=== PATIENT | male | born 1985 | race Caucasian/White ===

== ENCOUNTER 2016-09-07 05:59 | Day surgery (SDC) | payer OTHER ==
--- NOTE | 2016-09-04 23:04 | HP ---
ADMITTING HISTORY AND PHYSICAL: DATE OF ADMISSION: 09/07/16 AGE: 30 years, male. ADMITTING DIAGNOSES: 1. Hematuria. 2. Large bladder calculus. PLANNED PROCEDURES: Cystoscopy, fragmentation and removal of bladder calculus, possible laser. SURGEON: Dr. Vargas. HISTORY OF PRESENT ILLNESS: Josh Mclean is a 30-year-old gentleman who for the last several months has had difficulty urinating and increased frequency. He was evaluated and noted to have a fairly large 4 to 5 cm sharp edged calculus in the bladder. The calculus when I did a cystoscopy was located at the bladder neck and I suspect has been intermittently blocking the bladder neck and causing his urinary symptoms. He does have a history of frequent childhood urinary tract infections and it is possible that this problem has been going on for a long time. PAST MEDICAL HISTORY: Significant for an esophageal stricture diagnosed in 2012. PAST SURGICAL HISTORY: Significant for what seems to have been esophageal stent insertion in 2012, although details are not available at this time. MEDICATIONS: On admission Percocet p.r.n. ALLERGIES: No known drug allergies. PHYSICAL EXAMINATION GENERAL: A pleasant, uncomfortable-appearing young gentleman. VITAL SIGNS: Blood pressure is 116/72, pulse 76 per minute and regular, oxygen saturation 99% on room air, temperature 97.7. LUNGS: Clear bilaterally. CARDIOVASCULAR EXAM: Regular rate and rhythm. S1, S2. ABDOMEN: Soft without masses. IMPRESSION: A 30-year-old with a fairly large calculus in the bladder, which is causing obstructive and irritative voiding symptoms. Because of the large size of the calculus, I have explained to him that he may require multiple procedures in an effort to completely fragment and remove the calculus and I have also discussed the procedure in detail including possible risks of bleeding , infection, injury to the bladder, and incomplete fragmentation of the calculus. Plan is cystoscopy, fragmentation of large bladder calculus, and possible laser. CC: Dr. Rogers, [facility]* [id number]/[facility] #: [id number] [facility] DIVISIONMoncho
[2016-09-07] MEDS ORDERED: Buffered Lidocaine 1% SYR 3ML* 3 ML/SYR SYRINGE INTRADERM ONE (06:00)
[2016-09-07] MEDS ORDERED: cefTRIAXone(*) 2 GM ADDV.VIAL IVPB ONE ×2 (06:06→06:14)
[2016-09-07] MEDS ORDERED: Iohexol 180 (CONTRAST) 10 ML SDV IV ONE (07:20)
[2016-09-07] MEDS ORDERED: Lidocaine 2% PF * 5 ML VIAL ONE (07:32)
[2016-09-07] MEDS ORDERED: fentaNYL* 50 MCG/ML 2 ML VIAL (100 MCG VIAL) ONE ×3 (07:32→10:30)
[2016-09-07] MEDS ORDERED: Propofol* 10 MG/ML 20 ML BTL IV PUSH ONE (07:32)
[2016-09-07] MEDS ORDERED: Gentamicin ADULT (*) 140 MG in NS 0.9% 100 ML* 100 ML IVPB ONE (08:00)
[2016-09-07] MEDS ORDERED: DiMENhydriNATE IV* 50 MG/ML VIAL IV PUSH PRN (08:31)
[2016-09-07] MEDS ORDERED: Furosemide IV* 10 MG/ML 2 ML VIAL (20 MG) ONE (09:16)
[2016-09-07] MEDS: fentaNYL* 50 MCG/ML 2 ML VIAL (100 MCG VIAL) IV PRN ×4 (10:06→10:46)
[2016-09-07] MEDS ORDERED: oxyCODONE/Acetamin 5/325 MG* TAB ONE ×2 (10:27→11:19)
[2016-09-07] MEDS ORDERED: Lidocaine 2% JELLY* 6 ML JELLY TOPICAL ONE (10:27)
[2016-09-07] MEDS: oxyCODONE/Acetamin 5/325 MG* TAB PO PRN ×2 (10:27→11:20)
[2016-09-07 12:26] VITALS: BP 104/59
--- NOTE | 2016-09-08 00:26 | OP ---
DATE OF OPERATION: 09/07/16 [facility] DATE OF : [birth year] SURGEON: Jose Vargas MD ANESTHESIOLOGIST: Dr. Stewart. ANESTHESIA: General. PRE-OP DIAGNOSES: 1. Recurrent urinary tract infection. 2. Large bladder calculus. POST-OP DIAGNOSES: 1. Recurrent urinary tract infection. 2. Large bladder calculus. OPERATIVE PROCEDURE: Cystoscopy, laser lithotripsy of large bladder calculus, and fragmentation and removal of bladder calculus. COMPLICATIONS: None. INDICATIONS: Josh Mclean is a 30-year-old young gentleman with a history of recurrent urinary tract infection. He was evaluated and noted to have a large calculus in the bladder. He is now being brought in for fragmentation of the same because of the very large size of the calculus. I have explained to him that he may require a staged procedure to completely fragment and remove the calculus. FINDINGS: Very large calculus occupying almost entire lumen of urinary bladder with extensive areas of chronic inflammatory response. POSTOPERATIVE CONDITION: Stable. DESCRIPTION OF PROCEDURE: After induction of general anesthesia, the patient was placed in dorsal lithotomy position, sequential compression devices were in place and functioning. The distal urethra was carefully dilated to 28 Libyan to allow the insertion of the 25 Libyan cystoscope, which was done without difficulty. The remainder of the urethra was normal. The bladder was entered and examined. There was a fairly large 6 to 7 cm calculus occupying almost the entire lumen of the bladder. It looked like the calculus had been seated right at the bladder neck because the mucosa under this was chronically inflamed and irritated. There was evidence of chronic inflammation pretty much all around the bladder. The right and left ureteral orifices were normal in position again with chronic inflammatory changes surrounding both orifices. Using a 1000 micron holmium laser fiber, laser lithotripsy was commenced. The stone in addition to being very large was also fairly hard and after about 1 hour of laser lithotripsy, I suspect that approximately 60% of the calculus had been fragmented. The stone crushing forceps were used and the fragmented portion was further broken up into smaller pieces, which were then irrigated out. There was some bleeding noted from the right side of the bladder neck which was controlled using the electrocautery successfully and there was no evidence of any bladder perforation. At this point, I elected to go ahead and stop the procedure as the initial plan had been that this would probably be a 2-stage procedure and a 20- Libyan Hand catheter was introduced without difficulty and connected to a urinary bag. The patient tolerated the procedure satisfactorily and was transferred back to the recovery area in stable condition. CC: Dr. Yadira Rogers, [facility] * [id number]/[facility] #: [id number] MTDD
== END 2016-09-07 12:27 | disposition home or self-care (01) ==
LOC: OR 05:59
PROVIDERS: ATTEND Urology
PROC: 0TCB8ZZ Extirpation of Matter from Bladder, Via Natural or Artificial Opening Endoscopic (ICD-10-PCS; principal; 2016-09-07 07:45)
DX: N21.0 Calculus in bladder (principal); R31.9 Hematuria, unspecified
CPT/HCPCS: 82365; 88300; A9270-GY; J0696; J1580; J1940; J2704; J3010

== ENCOUNTER 2016-10-29 06:29 | Day surgery (SDC) | payer OTHER ==
--- NOTE | 2016-10-09 09:34 | HP ---
ADMITTING HISTORY AND PHYSICAL: DATE OF ADMISSION: 10/29/16 - [facility] ADMITTING DIAGNOSIS: Bladder calculus. PLANNED PROCEDURE: Cystoscopy, laser lithotripsy of bladder calculi, and fragmentation of bladder calculi. HISTORY OF PRESENT ILLNESS: Josh Mclean is a 30-year-old gentleman who had previously been evaluated and noted to have a very large hard calculus in the urinary bladder. He had undergone laser fragmentation on 09/07/16 with partial fragmentation and removal of the calculus and still has residual large calculus fragments which I need to break up some more with the laser and remove completely. He is now being brought in for his second procedure for the same. PAST MEDICAL HISTORY: Significant for: 1. Bladder calculus. 2. History of esophageal stricture. PAST SURGICAL HISTORY: Cystoscopy and laser lithotripsy of bladder calculus on 09/07/16 and prior to that, esophageal stent insertion. MEDICATIONS: None. ALLERGIES: No known drug allergies. PHYSICAL EXAMINATION GENERAL: A pleasant healthy-appearing young gentleman. VITAL SIGNS: Blood pressure is 96/60, pulse 58 per minute, oxygen saturation 99 % on room air. LUNGS: Clear bilaterally. CARDIOVASCULAR: Regular rate and rhythm. S1, S2. ABDOMEN: Soft without masses. IMPRESSION: A 30-year-old gentleman with a large bladder calculus which has been partially fragmented and he is now being brought in for a followup procedure for laser lithotripsy and fragmentation and removal of bladder calculi. [id number]/[facility] #: [id number] MTDD
[~2016-10-29 06:29] MED LIST: Buffered Lidocaine 1% SYR 3ML* 3 ML/SYR SYRINGE INTRADERM ONE; Famotidine IV* 10 MG/ML 2 ML (20 mg) IV ONE; PROCHLORPERAZINE INJ 5 MG/ML 2 ML VIAL IV PRN; Scopolamine 1.5 mg* PATCH TRANSDERM PRN; fentaNYL* 50 MCG/ML 2 ML VIAL (100 MCG VIAL) IV PRN
[2016-10-29] MEDS ORDERED: Famotidine IV* 10 MG/ML 2 ML (20 mg) ONE (06:36)
[2016-10-29] MEDS ORDERED: cefTRIAXone(*) 2 GM ADDV.VIAL IVPB ONE (06:37)
[2016-10-29] MEDS ORDERED: fentaNYL* 50 MCG/ML 2 ML VIAL (100 MCG VIAL) ONE ×2 (07:33→09:59)
[2016-10-29] MEDS ORDERED: Midazolam* 1 MG/ML 5 ML VIAL (5 MG) ONE (07:33)
[2016-10-29] MEDS ORDERED: KETAMINE HCL* 50 MG/ML 10 ML VIAL ONE (07:33)
[2016-10-29] MEDS ORDERED: Dexamethasone IV* 4 MG/ML 1 ML (4 MG) ONE (08:04)
[2016-10-29] MEDS ORDERED: Lidocaine 2% PF * 5 ML VIAL ONE ×2 (08:04→08:40)
[2016-10-29] MEDS ORDERED: Ondansetron INJ* 2 MG/ML VIAL ONE (08:04)
[2016-10-29] MEDS ORDERED: Propofol* 10 MG/ML 20 ML BTL IV PUSH ONE (08:04)
[2016-10-29] MEDS ORDERED: Furosemide IV* 10 MG/ML 2 ML VIAL (20 MG) ONE (08:52)
[2016-10-29] MEDS ORDERED: PROCHLORPERAZINE INJ 5 MG/ML 2 ML VIAL ONE (11:25)
[2016-10-29] MEDS ORDERED: Morphine INJ* 4 MG/ML 1 ML SYRINGE ONE ×2 (11:25→11:53)
[2016-10-29] MEDS ORDERED: Scopolamine 1.5 mg* PATCH ONE (11:25)
[2016-10-29] MEDS: Morphine INJ* 2 MG/ML 1 ML SYRINGE IV PRN ×4 (11:29→12:06)
[2016-10-29] MEDS ORDERED: oxyCODONE/Acetamin 5/325 MG* TAB ONE ×2 (11:53→11:57)
[2016-10-29] MEDS: oxyCODONE/Acetamin 5/325 MG* TAB PO PRN ×2 (12:04→12:05)
[2016-10-29] MEDS ORDERED: Lidocaine 2% JELLY* 6 ML JELLY TOPICAL ONE (12:14)
[2016-10-29 13:33] VITALS: BP 106/62
--- NOTE | 2016-10-29 23:16 | OP ---
DATE OF OPERATION: 10/29/16 - [facility] DATE OF : [birth year] SURGEON: Jose Vargas MD ANESTHESIOLOGIST: Dr. Ruff. ANESTHESIA: General. PRE-OP DIAGNOSIS: Large bladder calculus. POST-OP DIAGNOSIS: Large bladder calculus. OPERATIVE PROCEDURE: Cystoscopy, laser lithotripsy of large bladder calculus and fragmentation and removal of calculus fragments. COMPLICATIONS: None. POSTOPERATIVE CONDITION: Stable. CATHETER: A 20-Irish Hand. INDICATIONS: Josh Mclean is a 30-year-old gentleman who had been evaluated and noted to have a very large bladder calculus. This had been partially fragmented about 4 to 5 weeks ago and he is now being brought in for followup laser lithotripsy. OPERATIVE FINDINGS: Very large calculus occupying almost 50% of bladder volume (already broken up once 4 to 6 weeks ago). POSTOPERATIVE CONDITION: Stable. DESCRIPTION OF PROCEDURE: After induction of general anesthesia, the patient was placed in dorsal lithotomy position. Sequential compression devices were in place and functioning. Initial cystoscopy revealed a normal-appearing urethra. The bladder was examined. There was a very large calculus measuring about 6 to 7 cm in size, which had been partially fragmented. There was some inflammatory response noted in the floor of the bladder as expected, but no evidence of any suspicious lesions. Using the 1000 micron holmium laser, the calculus was fragmented. This was fairly hard and it took almost 90 plus minutes of laser lithotripsy to effectively fragment it into multiple pieces, which then could be crushed with the stone crushing forceps. Using a combination of the laser and the stone crushing forceps, the calculus was eventually broken up into small enough fragments, which were then removed using the [facility] evacuator. At the end of the procedure, there were no sizable fragments remaining. A 20-Irish Hand was introduced without difficulty and connected to a drainage bag. The patient tolerated the procedure satisfactorily and was transferred back to the recovery area in stable condition. [id number]/[facility] #: [id number] MTDD
[2016-11-01] MEDS ORDERED: Scopolomine PATCH Remove* 1 NOTE MISC PATCH OFF ONE (06:08)
== END 2016-10-29 13:10 | disposition home or self-care (01) ==
LOC: OR 06:29
PROVIDERS: ATTEND Urology
DX: N21.0 Calculus in bladder (principal)
CPT/HCPCS: A9270-GY; J0696; J0780; J1100; J1580; J1940; J2250; J2270; J2405; J2704; J3010

== ENCOUNTER → 2019-06-12 09:33 | Day surgery (SDC) | payer BC, OTHER ==
--- NOTE | 2019-06-04 19:08 | HP ---
ADMITTING HISTORY AND PHYSICAL: DATE OF ADMISSION: 06/12/19 ADMITTING DIAGNOSIS: Multiple large bladder calculi. PLANNED PROCEDURE: Cystoscopy, fragmentation and removal of bladder calculi, possible laser. SURGEON: Dr. Vargas. HISTORY OF PRESENT ILLNESS: Josh Mclean is a 33-year-old gentleman who I had originally evaluated about 2-1/2 years ago for findings of multiple large bladder calculi. He had undergone treatment with cystoscopy and laser lithotripsy in August of 2016 and subsequently October of 2016 with eventual resolution of the calculi. He was then lost follow up and was recently seen after a gap about 2 years and was noted to have 3 to 4 large bladder calculi. He is now being brought in for treatment of the same. He has not been identified as having any risk factors for the bladder calculi, specifically there is no evidence of urethral stricture and no significant prostate enlargement and no evidence of incomplete bladder emptying. PAST MEDICAL HISTORY: Significant for bladder calculi, esophageal stricture in 2012. PAST SURGICAL HISTORY: Significant for esophageal stent in 2012 and procedures for bladder calculi in 2016. MEDICATIONS ON ADMISSION: None. ALLERGIES: No known drug allergies. FAMILY HISTORY: Mother and father both have history of kidney stones. SOCIAL HISTORY: He is a nonsmoker. REVIEW OF SYSTEMS: He is otherwise in excellent health. There is no history of diabetes mellitus or any other major systemic illness. PHYSICAL EXAMINATION GENERAL: Reveals a pleasant healthy appearing young gentleman. VITAL SIGNS: Blood pressure is 120/80, pulse 93 per minute regular, oxygen saturation 98% on room air, temperature 97. LUNGS: Clear bilaterally. CARDIOVASCULAR: Regular rate and rhythm. S1, S2. ABDOMEN: Soft without masses. IMPRESSION: A 33-year-old gentleman with recurrent large bladder calculi without any obvious predisposing factor. Planned procedure is cystoscopy, fragmentation and removal of bladder calculi possible laser. [id number]/[facility] #: [id number] [facility]
[~2019-06-12 09:33] MED LIST changes: -Buffered Lidocaine 1% SYR 3ML* 3 ML/SYR SYRINGE INTRADERM ONE; +Buffered Lidocaine 1% SYRIN* 1 ML/SYRINGE INTRADERM ONE; +Dexamethasone IV* 4 MG/ML 1 ML (4 MG) IV SLOW PU ONE; +Dexamethasone IV* 4 MG/ML 1 ML (4 MG) ONE; +DiMENhydriNATE IV* 50 MG/ML VIAL IV PUSH PRN; +EPHEDrine (Pressors)* 50 MG/ML VIAL ONE; +Famotidine IV* 10 MG/ML 2 ML (20 mg) ONE; +Furosemide IV* 10 MG/ML 2 ML VIAL (20 MG) ONE; +Gentamicin ADULT (*) 140 MG in NS 0.9% 100 ML* 100 ML IVPB ONE; +HYDROcodone/ACETAMIN 5-325 MG* 1 TAB PO PRN; +Lactated Ringers 1000 ML Bag* 1,000 ML IV SCH; +Lidocaine 2% PF * 5 ML VIAL ONE; +Midazolam* 1 MG/ML 5 ML VIAL (5 MG) ONE; +Naloxone* 0.4 MG/ML 1 ML VIAL IV PRN; +Ondansetron INJ* 2 MG/ML VIAL ONE; -PROCHLORPERAZINE INJ 5 MG/ML 2 ML VIAL IV PRN; +Propofol* 10 MG/ML 20 ML BTL ONE; -Scopolamine 1.5 mg* PATCH TRANSDERM PRN; +cefTRIAXone(*) 2 GM ADDV.VIAL IVPB ONE; +fentaNYL* 50 MCG/ML 2 ML VIAL (100 MCG VIAL) ONE; +oxyCODONE/Acetamin 5/325 MG* TAB ONE
[2019-06-12] MEDS: oxyCODONE/Acetamin 5/325 MG* TAB PO PRN ×2 (15:26→15:30)
[2019-06-12 15:39] VITALS: BP 131/65
--- NOTE | 2019-06-13 01:41 | OP ---
OPERATIVE REPORT: DATE OF OPERATION: 06/12/19 - [facility] DATE OF : [birth year] SURGEON: Jose Vargas MD ANESTHESIOLOGIST: Dr. Burgess. ANESTHESIA: General. PRE-OP DIAGNOSIS: Multiple large bladder calculi. POST-OP DIAGNOSIS: Multiple large bladder calculi. OPERATIVE PROCEDURE: Cystoscopy, laser lithotripsy for bladder calculi. COMPLICATIONS: None. BLOOD LOSS: Minimal. INDICATIONS: Mr. Mclean is a 33-year-old young gentleman with recurrent bladder calculi without any obvious predisposing factors (no history of obstruction or stricture or incomplete emptying). He had successfully undergone treatment of very large, very hard bladder calculi a few years ago and now presented with recurring multiple calculi. OPERATIVE FINDINGS: Multiple, large, very hard bladder calculi with very minimal fragmentation achieved by laser lithotripsy. POSTOPERATIVE CONDITION: Stable. CATHETER: 20-Citizen [place] Hand. DESCRIPTION OF PROCEDURE: After induction of general anesthesia, the patient was placed on dorsal lithotomy position. Sequential compression devices were in place and functioning. Initial cystoscopy revealed a normal-appearing urethra and no significant enlargement of the prostate. The bladder was examined. There were multiple large bladder calculi, at least 4 to 5. There was evidence of significant inflammatory response in the posterior bladder wall and also in the floor of the bladder. The bladder otherwise was unremarkable. The calculi were too large to be engaged with a stone crushing the forceps. So , I used 1000 micron Holmium laser fiber and attempted laser lithotripsy. I was using laser for about 1 hour trying to make a dent in the calculi, but at the end of the hour, there was very mild fragmentation of 2/4-5 calculi[address] I attempted to place the stone crushing forceps to try and crush the stones, but again found that they were too big for the stone crushing forceps and I could not get the jaws of the stone crushing forceps around the calculi even in spite of 1 hour of laser. My feeling is that he may require an open procedure to remove the calculi with the cystotomy and my plan is to discuss this with him and then possibly schedule this in the near future. A 20-Citizen [place] Hand was placed for temporary bladder drainage. The patient tolerated the procedure satisfactorily and was transferred back to the recovery area in stable condition. [id number]/[facility] #: [id number] [facility]ITAL[facility]
== END | disposition home or self-care (01) ==
LOC: OR 09:33
PROVIDERS: ATTEND Urology
DX: N21.0 Calculus in bladder (principal); J45.909 Unspecified asthma, uncomplicated
CPT/HCPCS: 74018; A9270-GY; J0696; J1100; J1580; J1940; J2250; J2405; J2704; J3010

== ENCOUNTER 2019-06-29 05:58 | Inpatient (IN) | payer BC ==
--- NOTE | 2019-06-23 09:44 | HP ---
ADMITTING HISTORY AND PHYSICAL: DATE OF ADMISSION: 06/29/19 ADMITTING DIAGNOSIS: Multiple large bladder calculi. PLANNED PROCEDURE: Open removal of bladder calculi. SURGEON: Jose Vargas MD HISTORY OF PRESENT ILLNESS: Josh Mclean is a 33-year-old gentleman with a history of recurrent multiple large bladder calculi. I had attempted on cystoscopy and laser fragmentation of these bladder calculi, but because of the extremely large size and because of the hardness of the calculi, this procedure did not result in any significant reduction of the size or number of calculi. I had a detailed discussion with Josh and given the large size and number of calculi, I think the most prudent thing would be to proceed with an open removal of the bladder calculi and he is now being brought in for the same. PAST MEDICAL HISTORY: Significant for: 1. Esophageal stricture in 2012. 2. Bladder calculi in 2017 and now again in 2019. PAST SURGICAL HISTORY: Endoscopic procedure for esophageal stent in 2012 and procedures for bladder calculi in 2017 and 2019. MEDICATIONS ON ADMISSION: None. ALLERGIES: No known drug allergies. FAMILY HISTORY: Positive for kidney stones (mother and father). SOCIAL HISTORY: He is a nonsmoker. REVIEW OF SYSTEMS: There is no history of diabetes mellitus or any other major systemic illness. He is fairly active and in excellent health. PHYSICAL EXAMINATION GENERAL: Reveals a pleasant healthy-appearing young gentleman. VITAL SIGNS: Blood pressure is 110/70, pulse 70 per minute and regular, oxygen saturation 99% on room air, temperature 96.9. LUNGS: Clear bilaterally. CARDIOVASCULAR: Regular rate and rhythm. S1, S2. ABDOMEN: Soft without masses. IMPRESSION: A 33-year-old gentleman with recurrent multiple large bladder calculi without any evidence of bladder outlet obstruction, who is being brought in for open removal of bladder calculi. I have discussed the procedure in detail with Josh including possible risks of bleeding, infection, and the possibility of recurrent stone. Since there is no evidence of any bladder outlet obstruction, this can be corrected at the present time. [id number]/[facility] #: [id number] MTDD
[~2019-06-29 05:58] MED LIST changes: -Buffered Lidocaine 1% SYRIN* 1 ML/SYRINGE INTRADERM ONE; -Dexamethasone IV* 4 MG/ML 1 ML (4 MG) IV SLOW PU ONE; -Dexamethasone IV* 4 MG/ML 1 ML (4 MG) ONE; -DiMENhydriNATE IV* 50 MG/ML VIAL IV PUSH PRN; -EPHEDrine (Pressors)* 50 MG/ML VIAL ONE; -Famotidine IV* 10 MG/ML 2 ML (20 mg) IV ONE; -Famotidine IV* 10 MG/ML 2 ML (20 mg) ONE; -Furosemide IV* 10 MG/ML 2 ML VIAL (20 MG) ONE; -Gentamicin ADULT (*) 140 MG in NS 0.9% 100 ML* 100 ML IVPB ONE; +Gentamicin ADULT (*) 140 MG in NS 0.9% 100 ML* 100 ML IVPB SCH; -HYDROcodone/ACETAMIN 5-325 MG* 1 TAB PO PRN; -Lactated Ringers 1000 ML Bag* 1,000 ML IV SCH; -Lidocaine 2% PF * 5 ML VIAL ONE; -Midazolam* 1 MG/ML 5 ML VIAL (5 MG) ONE; -Naloxone* 0.4 MG/ML 1 ML VIAL IV PRN; -Ondansetron INJ* 2 MG/ML VIAL ONE; -Propofol* 10 MG/ML 20 ML BTL ONE; -cefTRIAXone(*) 2 GM ADDV.VIAL IVPB ONE; -fentaNYL* 50 MCG/ML 2 ML VIAL (100 MCG VIAL) IV PRN; -fentaNYL* 50 MCG/ML 2 ML VIAL (100 MCG VIAL) ONE; -oxyCODONE/Acetamin 5/325 MG* TAB ONE
[2019-06-29] MEDS ORDERED: Lactated Ringers 1000 ML Bag* 1,000 ML IV SCH (06:00)
[2019-06-29] MEDS ORDERED: cefTRIAXone(*) 2 GM ADDV.VIAL IVPB ONE (06:26)
[2019-06-29] MEDS ORDERED: Buffered Lidocaine 1% SYRIN* 1 ML/SYRINGE INTRADERM ONE (06:26)
[2019-06-29] MEDS: Buffered Lidocaine 1% SYRIN* 1 ML/SYRINGE INTRADERM ONE ×2 (06:42→11:28)
[2019-06-29] MEDS ORDERED: Naloxone* 0.4 MG/ML 1 ML VIAL IV PRN (07:10)
[2019-06-29] MEDS ORDERED: Midazolam* 1 MG/ML 2 ML VIAL (2 MG) ONE (07:16)
[2019-06-29] MEDS ORDERED: fentaNYL* 50 MCG/ML 2 ML VIAL (100 MCG VIAL) ONE ×2 (07:16→08:19)
[2019-06-29] MEDS ORDERED: Rocuronium* 10 MG/ML VIAL ONE (07:17)
[2019-06-29] MEDS ORDERED: Lidocaine 2% PF * 5 ML VIAL ONE (07:23)
[2019-06-29] MEDS ORDERED: ROPIVACAINE 5 MG/ML 30 ML BTL (0.5%) ONE (07:23)
[2019-06-29] MEDS ORDERED: Propofol* 10 MG/ML 20 ML BTL ONE (07:52)
[2019-06-29] MEDS ORDERED: Dexamethasone IV* 4 MG/ML 1 ML (4 MG) ONE (07:52)
[2019-06-29] MEDS ORDERED: Acetaminophen IV 1GM/100ML * 100 ML ONE (08:19)
[2019-06-29] MEDS ORDERED: Furosemide IV* 10 MG/ML 2 ML VIAL (20 MG) ONE (08:48)
[2019-06-29] MEDS ORDERED: Sugammadex * 200 MG/2 ML VIAL IV PUSH ONE (08:51)
[2019-06-29] MEDS ORDERED: Ondansetron INJ* 2 MG/ML VIAL ONE (08:51)
[2019-06-29] MEDS ORDERED: oxyCODONE TAB* 5 MG TAB PO PRN (09:14)
[2019-06-29] MEDS ORDERED: HYDROmorphone INJ1* 1 MG/ML SYRINGE ONE (09:27)
[2019-06-29] MEDS ORDERED: oxyCODONE TAB* 5 MG TAB ONE ×2 (09:27→09:49)
[2019-06-29] MEDS: HYDROmorphone INJ1* 1 MG/ML SYRINGE IV PRN ×2 (09:29→09:59)
[2019-06-29] MEDS ORDERED: Lidocaine 2% JELLY* 6 ML JELLY TOPICAL ONE (09:39)
[2019-06-29] MEDS ORDERED: Acetaminophen TAB* 325 MG PO PRN ×2 (11:17→11:18)
[2019-06-29] MEDS: cefTRIAXone(*) 2 GM in NS 0.9% 100 ML* 100 ML IVPB SCH (11:26)
[2019-06-29] MEDS: Lactated Ringers 1000 ML Bag* 1,000 ML IV SCH ×2 (11:26→17:49)
[2019-06-29 11:47] LABS: Urine Appearance Clear; Urine Bilirubin Negative (Negative); Urine Blood 2+ (Negative); Urine Color Straw; Urine Glucose Negative (Negative); Urine Ketones Negative (Negative); Urine Nitrite Negative (Negative); Urine Protein Negative (Negative); Urine Specific Gravity 1.012 (1.010-1.030); Urine Urobilinogen Negative (Negative)
[2019-06-29 11:54] LABS: Urine Bacteria Absent (Absent); Urine Red Blood Cell 3+(>10/hpf) (Absent); Urine White Blood Cell Trace(0-5/hpf) (Absent)
[2019-06-29] MEDS: Docusate CAP* 100 MG PO SCH ×2 (13:59→19:52)
[2019-06-29] MEDS: Lidocaine 2% JELLY* 6 ML JELLY TOPICAL SCH ×2 (13:59→19:58)
[2019-06-29] MEDS: oxyCODONE/Acetamin 5/325 MG* TAB PO PRN (19:51)
--- NOTE | 2019-06-29 21:13 | OP ---
DATE OF OPERATION: 06/29/19 - ROOM #340 DATE OF : [birth year] SURGEON: Jose Vargas MD CONTENT PUBLISHER: Dr. Lozano. ANESTHESIOLOGIST: Dr. Galicia. ANESTHESIA: General. PRE-OP DIAGNOSIS: Multiple large bladder calculi. POST-OP DIAGNOSIS: Multiple large bladder calculi. OPERATIVE PROCEDURE: Cystotomy and open removal of multiple bladder calculi. INDICATIONS: Josh Mclean is a 33-year-old young gentleman with a history of recurrent bladder calculi without any evidence of bladder outlet obstruction. COMPLICATIONS: None. ESTIMATED BLOOD LOSS: Less than 25 cc. DRAINS: 22-Fijian Hand, right 1/4 inch [place] drain. POSTOPERATIVE CONDITION: Stable. SPECIMEN: Multiple bladder calculi. OPERATIVE FINDINGS: Thick wall bladder with multiple large bladder calculi. DESCRIPTION OF PROCEDURE: After induction of general anesthesia, the patient was placed on the operating table in supine position. The lower abdomen and external genitalia were prepped and draped in the usual sterile fashion. A lower midline incision was made and the fascia was opened in the line of the incision. The space between the rectus abdominis muscle was identified and this was used to gain access to the prevesical space and the space of Retzius. Using the blunt dissection, a plain was created anterior to and lateral to the bladder on both sides. Once this was done, stay sutures were placed in the anterior bladder wall using 2-0 Vicryl and a cystotomy was performed. The bladder wall was noted to be fairly thick walled and once the bladder had been opened, 4 large calculi could be visualized and these were removed and sent for chemical analysis. No other calculi were noted and the bladder was closed in 2 layers using 2-0 Vicryl followed by a layer of 2-0 chromic. A 22-Fijian Hand was introduced per urethra and the bladder distended with about 300 to 400 cc of sterile water and there was no leak noted. The pelvis was irrigated. A 1/4 inch Aj drain was placed and brought out through the middle of the incision. The fascia was closed using interrupted sutures of #1 Vicryl and skin was closed using skin zonia. Dry sterile dressings were applied. All sponge and needle counts were correct. The patient tolerated the procedure satisfactorily and was transferred back to the recovery area in stable condition. [id number]/[facility] #: [id number] AYESHA
[2019-06-30] MEDS: Lactated Ringers 1000 ML Bag* 1,000 ML IV SCH ×2 (00:30→08:24)
[2019-06-30] MEDS: oxyCODONE/Acetamin 5/325 MG* TAB PO PRN ×2 (04:12→11:07)
[2019-06-30] MEDS: Docusate CAP* 100 MG PO SCH ×2 (08:24→14:16)
[2019-06-30] MEDS: Ibuprofen TAB* 200 MG PO PRN ×2 (08:24→09:48)
[2019-06-30] MEDS: Lidocaine 2% JELLY* 6 ML JELLY TOPICAL SCH ×2 (08:27→14:16)
[2019-06-30] MEDS ORDERED: Ibuprofen TAB* 800 MG PO PRN (09:38)
[2019-06-30] MEDS: cefTRIAXone(*) 2 GM in NS 0.9% 100 ML* 100 ML IVPB SCH (10:06)
[2019-06-30 11:33] VITALS: BP 120/69
--- NOTE | 2019-07-01 01:08 | DS ---
DISCHARGE SUMMARY: DATE OF ADMISSION: 06/29/19 DATE OF DISCHARGE: 06/30/19 ADMITTING DIAGNOSIS: Multiple large bladder calculi. SURGICAL PROCEDURE ON THIS ADMISSION: Open cystolithotomy on 06/29/19. ADMITTING HISTORY AND HOSPITAL COURSE: Josh Mclean is a 33-year-old young gentleman with a history of recurrent bladder calculi in the absence of any bladder outlet obstruction. For details, please see admitting history and physical. HOSPITAL COURSE: On 06/29/19, Mr. Mclean underwent open cystolithotomy under general anesthesia. Surgery was smooth and uneventful. He was monitored in the hospital overnight and I evaluated him in the evening of 06/29/19 and again on the morning of 06/30/19 and his vital signs were stable. His Hand catheter was draining clear urine with good output and he was discharged to home with a Hand in place for follow up as per outpatient protocol. [id number]/[facility] #: [id number] MTDD
== END 2019-06-30 14:52 | disposition home or self-care (01) | DRG 445 ==
LOC: OR 05:58 → SSU 08:58
PROVIDERS: ADMIT Urology; ATTEND Urology
PROC: 0TCB0ZZ Extirpation of Matter from Bladder, Open Approach (ICD-10-PCS; principal; 2019-06-29 07:30)
DX: N21.0 Calculus in bladder (principal); J45.909 Unspecified asthma, uncomplicated; Z87.442 Personal history of urinary calculi; Z28.21 Immunization not carried out because of patient refusal
CPT/HCPCS: 81003; 81015; 82365; 87086; 88300; A9270-GY; J0696; J1100; J1170; J1580; J1940; J2250; J2405; J2704; J2795; J3010